=== PATIENT | female | born 1990 | race Caucasian/White ===

== ENCOUNTER 2016-11-02 17:45 | Observation (INO) | payer SELFPAY ==
[2016-11-02 17:55] VITALS: O2SAT 98
[2016-11-02 18:37] LABS: ABG ALLEN TEST YES; ARTERIAL BLOOD GAS HCO3 25.4 mmol/L (21-28); ARTERIAL BLOOD GAS PH 7.44 (7.35-7.45); ARTERIAL BLOOD GAS PO2 98 mm/Hg (80-100)
--- NOTE | 2016-11-02 18:41 | ED PDOC ---
HPI: Psych/Substance Abuse Time Seen by Provider: 11/02/16 18:04 Chief Complaint (Nursing): Psychiatric Evaluation Chief Complaint (Provider): SI/Overdose History Per: Patient, EMS History/Exam Limitations: clinical condition Onset/Duration Of Symptoms: Hrs (just prior to arrival) Involuntary Hold By: None Additional Complaint(s): Ericka Hernandez is a 26 year old female, with an unknown past medical/ psychiatric history, who presents to the ED on 11/02/16, via EMS, for evaluation s/p overdose. Per EMS, patient had met them in the lobby of her [facility] after she had called them to report that she was feeling acutely suicidal and took multiple tablets of what she said were acid reflux and respiratory infection medications. No medication bottles were retrieved as EMS had never entered the patient's apartment and, as patient is in acute psychiatric distress upon arrival, she is unable to provide further history. PMD: unknown Past Medical History Reviewed: Unable To Obtain Vital Signs: Last Vital Signs Temp 98.9 F 11/02/16 17:52 Pulse 112 H 11/02/16 17:52 Resp 22 11/02/16 17:52 BP 146/92 H 11/02/16 17:52 Pulse Ox 98 11/02/16 17:52 - Family History Family History: States: Unknown Family Hx - Allergies Allergies/Adverse Reactions: Allergies Allergy/AdvReac Type Severity Reaction Status Date / Time No Known Allergies Allergy Verified 11/02/16 17:51 Review of Systems Review Of Systems: ROS cannot be obtained secondary to pt's inabilty to answer questions. Psych: Positive for: Suicidal ideation, Other (reported overdose on acid reflux and respiratory infection medications) Physical Exam - Reviewed Nursing Documentation Reviewed: Yes Vital Signs Reviewed: Yes - Physical Exam Appears: Positive for: Non-toxic, In Acute Distress (psychiatric) Head Exam: Positive for: ATRAUMATIC, NORMOCEPHALIC Skin: Positive for: Normal Color, Warm, Dry Eye Exam: Positive for: EOMI, PERRL, Conjunctival injection (b/l) ENT: Positive for: Pharynx Is (clear), Other (tacky mucous membranes) Neck: Positive for: Normal, Painless ROM, Supple Cardiovascular/Chest: Positive for: Regular Rate, Rhythm. Negative for: Murmur Respiratory: Positive for: Normal Breath Sounds. Negative for: Respiratory Distress Gastrointestinal/Abdominal: Positive for: Normal Exam, Soft. Negative for: Tenderness Back: Positive for: Normal Inspection Extremity: Positive for: Normal ROM (moving all extremities) Neurologic/Psych: Positive for: Alert, Mood/Affect (tearful, not cooperating with history taking) - Laboratory Results Result Diagrams: 11/02/16 18:45 11/02/16 18:45 - ECG O2 Sat by Pulse Oximetry: 98 (RA) Pulse Ox Interpretation: Normal (R) Medical Decision Making Medical Decision Makin:04 Initial Impression: overdose Initial Plan: * EKG * CXR * ABG Shock Panel * Labs * Acetaminophen * Salicylate * Lactic Acid, Plasma * Magnesium * Phosphorus * PTT * PT * Glucose/Blood/POC * Upreg * Udip * Urine Drug Screen * Crisis Evaluation * 1:1 Observation * Reevaluation EKG shows NSR at 65bpm with normal QRS and ST segments. 18:20 Patient's father, Dr. Hernandez has called the ED with more information; . Per father, patient is a very anxious person but has had no prior psychiatric evaluations and is on no psychiatric medications as she is reportedly typically able to break out of her anxious episodes herself. Patient was reportedly given Cipro recently for the treatment of a respiratory infection and, after being evaluated by a GI specialist, had been prescribed Nexium as well for possible reflux. Father is unsure as to the dosages of these medications and does not know of any prior instances of drug abuse. Otherwise, patient has no pertinent past medical or surgical history. 19:47 Upon provider reevaluation patient is calm and now able to provide further history. Uncle is now at bedside. Patient reports that she has been very stressed out over the past 3 weeks in relation to her recent move to [place], [place] in an effort to avoid a stressful roommate. However, the move has not negated her discomfort, with patient further stating that she has been experiencing a lot of chest pain of late likely due to stress; leading to her having been prescribed the aforementioned reflux medicine. Patient also admits to drinking heavily today as she just wanted to "numb everything", but that she had chosen to take the aforementioned medications with the awareness that they were not going to kill her. Scribe Attestation: Documented by Denia Corado, acting as a scribe for Mckenna Foley MD. Provider Scribe Attestation: All medical record entries made by the Scribe were at my direction and personally dictated by me. I have reviewed the chart and agree that the record accurately reflects my personal performance of the history, physical exam, medical decision making, and the department course for this patient. I have also personally directed, reviewed, and agree with the discharge instructions and disposition. 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
[2016-11-02 19:02] LABS: BASO # 0.1 K/uL (0.0-0.2); EOS # 0.1 K/uL (0.0-0.7); EOS % 2.4 % (0.0-4.0); HEMATOCRIT 42.1 % (34.0-47.0); LYMPH # 2.4 K/uL (1.0-4.3); LYMPH % 42.5 % (20.0-40.0); MEAN CELL VOLUME 99.6 fl (81.0-99.0); MEAN CORPUSCULAR HEMOGLOBIN 34.4 pg (27.0-31.0); MEAN CORPUSCULAR HGB CONC 34.6 g/dL (33.0-37.0); MEAN PLATELET VOLUME 7.7 fl (7.2-11.7); MONO # 0.5 K/uL (0.0-0.8); MONO % 8.4 % (0.0-10.0); NEUT # 2.6 K/uL (1.8-7.0); NEUT % 45.7 % (50.0-75.0); NRBC % 0.1 % (0.0-0.0); WHITE BLOOD COUNT 5.7 K/uL (4.8-10.8)
[2016-11-02 19:17] LABS: ALB/GLOB RATIO 1.4 (1.0-2.1); ALKALINE PHOSPHATASE 57 U/L (38-126); ALT/SGPT 22 U/L (9-52); AST/SGOT 31 U/L (14-36); BILIRUBIN,TOTAL 0.3 mg/dl (0.2-1.3); BLOOD UREA NITROGEN 13 mg/dl (7-17); CARBON DIOXIDE 24 mmol/L (22-30); CHLORIDE 104 mmol/L (98-107); GFR AFRICAN-AMERICAN > 60; GLUCOSE,RANDOM 93 mg/dL (65-105); LIPASE 78 U/L (23-300); MAGNESIUM 2.2 MG/DL (1.6-2.3); PHOSPHOROUS 2.6 mg/dl (2.5-4.5); SODIUM 141 mmol/l (132-148); TOTAL PROTEIN 7.4 G/DL (6.3-8.2)
[2016-11-02 19:19] LABS: ALCOHOL SERUM 298 mg/dl (0-10); POTASSIUM 3.9 MMOL/L (3.6-5.0)
[2016-11-02 19:33] LABS: PARTIAL THROMBOPLASTIN TIME 27.6 SECONDS (23.3-32.5)
--- NOTE | 2016-11-03 00:02 | ED PDOC ---
- Laboratory Results Result Diagrams: 11/02/16 18:45 11/02/16 18:45 - ECG O2 Sat by Pulse Oximetry: 98 (RA) Medical Decision Making Medical Decision Makin Transfer of care from Dr. Foley to Dr. Carrero pending crisis eval. 0422 Patient has been cleared by crisis and is clinically sober. Patient expresses a desire to get dressed and go home. Patient is medically stable. Dx: alcohol induced depressie disorder and other substance abuse (per dr velez) Upon re-evaluation, patient is feeling much better and is stable for discharge. Patient is medically stable and ready for discharge. Counseling has been provided and patient is in agreement. Return if symptoms persist or acutely worsen. pt states she will take uber home given isntructions by ornamental metal worker helper for oupt follow up Scribe Attestation: Documented by Yoly Choudhary acting as a scribe for Yenny Carrero. Scribe Attestation: All medical record entries made by the Scribe were at my direction and personally dictated by me. I have reviewed the chart and agree that the record accurately reflects my personal performance of the history, physical exam, medical decision making, and the department course for this patient. I have also personally directed, reviewed, and agree with the discharge instructions and disposition. 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
[2016-11-03 04:53] VITALS: RESP 16
[2016-11-03 04:54] VITALS: BP 129/77; PULSE 73; TEMP 98.2
--- NOTE | 2016-11-03 07:58 | CARD ---
APPROVED REPORT EKG Measurement Heart [id number] <Conclusion> Normal sinus rhythm Normal ECG
--- NOTE | 2016-11-03 08:43 | RAD ---
HISTORY: overdose COMPARISON: No prior. FINDINGS: LUNGS: No active pulmonary disease. PLEURA: No significant pleural effusion identified, no pneumothorax apparent. CARDIOVASCULAR: Normal. OSSEOUS STRUCTURES: No significant abnormalities. VISUALIZED UPPER ABDOMEN: Normal. OTHER FINDINGS: None. IMPRESSION: No active disease.
== END 2016-11-03 04:19 | disposition home or self-care (01) ==
LOC: H.ER 17:45 → H.EROBSV 18:32
PROVIDERS: ADMIT Emergency Medicine; ATTEND Emergency Medicine
DX: F10.14 Alcohol abuse with alcohol-induced mood disorder (principal); T47.1X2A Poisoning by other antacids and anti-gastric-secretion drugs, intentional self-harm, initial encounter; T36.8X2A Poisoning by other systemic antibiotics, intentional self-harm, initial encounter; R45.851 Suicidal ideations; Y92.9 Unspecified place or not applicable
CPT/HCPCS: 71010; 80053; 81025; 82803; 82948; 83605; 83690; 83735; 84100; 85025; 85610; 85730; 93005; 99285; G0378; G0480